=== PATIENT | male | born 1965 | race Caucasian/White ===

== ENCOUNTER → 2016-08-11 | Outpatient (CLI) | payer BC ==
[~2016-08-11] MED LIST: ASA325 MG PO; CELEBREX200 MG PO; DEPO-TESTO100 MG/1 M IM; HYDROCHLOROTHIA25 MG PO; OXY IR DPS5 MG PO; PROTONIX40 MG PO; SENOKOT S1 TAB PO; SYNTHROID200 MCG PO; TOPROL XL DPS50 MG PO; TYLENOL DPS325 MG PO; ULTRAM DPS50 MG PO; ZESTRIL DPS20 MG PO
== END | disposition home or self-care (01) ==
DX: Z01.818 Encounter for other preprocedural examination (principal); M16.11 Unilateral primary osteoarthritis, right hip; I10 Essential (primary) hypertension

== ENCOUNTER 2016-08-25 10:03 | Inpatient (IN) | payer BC ==
[~2016-08-25] VITALS: Ht 188 cm; Wt 139.9 kg
--- NOTE | 2016-08-27 13:48 | OR ---
ADMIT: 08/25/2016 RM/LOC: 530 [facility] MR#: [id number] [address] [id number] DONNIE JAMISON [address] [place] [address] Operative/Delivery Room Report SEX: M AGE: 50 : 1965 SURGERY DATE: 08/25/2016 SURGEON: Lupe Mena MD PREOPERATIVE DIAGNOSIS: Severe osteoarthritis, right hip. POSTOPERATIVE DIAGNOSIS: Severe osteoarthritis, right hip. PROCEDURE: Right total hip arthroplasty. HOUSEHOLD APPLIANCES SALESPERSON: Jesus Rodriguez PA-C ANESTHESIA: Spinal. ESTIMATED BLOOD LOSS: 350 mL. SPECIMEN: Bone. COMPLICATIONS: None. COMPONENTS: DePuy #8 standard offset porous [place] femoral stem, a 56 mm Slaughters cup with a neutral liner, and a 36 mm ceramic head with a 1.5 neck length. DESCRIPTION OF PROCEDURE: This patient was brought into the operating room. After satisfactory level of anesthesia was achieved, the patient was then positioned on the left lateral decubitus position. All bony prominences were well padded. Axillary roll was placed under his left axilla, and the extremity was then prepped and draped in the usual sterile fashion. The patient had large soft tissue component, and this required an extended incision both proximally and distally. Dissection was carried through a very deep subcutaneous layer, and the iliotibial band was incised just below the tip of the trochanter and carried up to the tip of the trochanter. The gluteus amie was split in line with its fibers posteriorly. A retractor was placed deep to the iliotibial band and gluteus amie fibers. The gluteus medius was then retracted to expose the piriformis tendon. This was incised at its insertion on the piriformis fossa. The capsule was then incised just above the piriformis, and then the external rotators and capsule were removed as a single layer, and this L-shaped flap of soft tissue was then reflected, and the hip dislocated. I then open the piriformis fossa with a step drill. A canal-finding reamer was then used and a lateralizing reamer next. I then reamed up for a #8 femoral stem. His canal distally was very tight at that as well. I made my provisional neck cut and reamed up for a #8 femoral stem, which fit the canal very well and was very tight. A calcar reamer was used to ream the calcar, and the broach was then removed. I then positioned retractors around the acetabulum. I started reaming with a 45 mm and bottomed this out to the acetabular fossa. Then, I enlarged this using my transverse acetabular ligament as my best guide keeping my reaming parallel to that. I reamed up to a 55, and this filled the acetabulum quite well. I ADMIT: 08/25/2016 RM/LOC: 530 [facility] MR#: [id number] [address] [place] [id number] DONNIE JAMISON [address] [address] Operative/Delivery Room Report SEX: M AGE: 50 : 1965 impacted a 56 mm Slaughters cup in an anatomic position again keeping the inferior lip of the component within the confines of the transverse acetabular ligament and parallel to the transverse acetabular ligament. A trial liner was then placed and secured in the component, and after repositioning the femur, I then placed the #8 femoral trial with a 1.5 neck length and a 36 mm standard neck. I reduced the hip, and I could flex the patient's hip to 90 degrees, completely adduct it, and then internally rotate him to about 75 or 80 degrees before he would start subluxing posteriorly. Likewise with maximum abduction, external rotation, and extension, he would not dislocate anteriorly. At this point, all trial components were then removed. Our local was used per protocol, and after thorough irrigation using pulsatile lavage, I then seated the neutral liner in the acetabulum, and the #8 femoral stem in the femur. A ceramic head with a 1.5 neck length was then impacted on the femoral component. The hip reduced. Once again, we had very good soft tissue tension, very good stability both anteriorly and posteriorly. At this point, I could then close the capsule in an anatomic fashion using interrupted #5 Ethibond and repaired the piriformis with #5 Ethibond as well. The iliotibial band and gluteus amie fascia were closed with #1 Vicryl and running #2 Quill suture, and because of its depth, the subcutaneous tissue was closed in multiple layers using 2-0 Vicryl. A running subcuticular was then performed, and the Ethicon Prineo was used to finally close the skin. A sterile dressing was applied, and the patient was then transferred from the operative suite in stable condition. Lupe Mena MD/ giovana JOB #: [id number] CC: Lupe Mena, Attending Physician Woo Herrera, Family Physician
[2016-08-28] MEDS ORDERED: ZESTRIL DPS20 MG PO (16:45)
[2016-08-28] MEDS ORDERED: HYDROCHLOROTHIA25 MG PO (16:45)
[2016-08-28] MEDS ORDERED: SYNTHROID200 MCG PO (16:46)
[2016-08-28] MEDS ORDERED: TOPROL XL DPS50 MG PO (16:46)
[2016-08-28] MEDS ORDERED: DEPO-TESTO100 MG/1 M IM (16:47)
[2016-08-28] MEDS ORDERED: ASA325 MG PO (16:47)
[2016-08-28] MEDS ORDERED: CELEBREX200 MG PO (16:48)
[2016-08-28] MEDS ORDERED: SENOKOT S1 TAB PO (16:48)
[2016-08-28] MEDS ORDERED: PROTONIX40 MG PO (16:48)
[2016-08-28] MEDS ORDERED: TYLENOL DPS325 MG PO (16:49)
[2016-08-28] MEDS ORDERED: OXY IR DPS5 MG PO (16:49)
[2016-08-28] MEDS ORDERED: ULTRAM DPS50 MG PO (16:49)
--- NOTE | 2016-09-02 07:44 | HP ---
ADMIT: 08/25/2016 RM/LOC: W.02 [facility] MR#: [id number] [facility] [address] [place] [address] Pre-OP History and Physical SEX: M AGE: 50 : 1965 DATE OF SERVICE: CHIEF COMPLAINT: Osteoarthritis right hip. HISTORY: This patient presents for right total hip arthroplasty. He has had all the usual conservative care and now presents with pain on a fairly constant basis. It interferes with activities of daily living, interferes with his sleep as well as his job at [employer]. He now presents for surgical treatment. PAST MEDICAL HISTORY: He has a history of hypertension, GERD, and sleep apnea. PAST SURGICAL HISTORY: Knee arthroscopy in 2003. MEDICATIONS: 1. Tirosint. 2. Metoprolol. 3. Hydrochlorothiazide. 4. Lisinopril. ALLERGIES: NO ALLERGIES TO MEDICINES. FAMILY HISTORY: Positive for cancer. SOCIAL HISTORY: The patient is a nonsmoker. He is . He and his live in [place]. He works at [employer]. REVIEW OF SYSTEMS: Negative. ADMIT: 08/25/2016 RM/LOC: W.02 [facility] MR#: [id number] [address] [address] [facility] [address] Pre-OP History and Physical SEX: M AGE: 50 : 1965 PHYSICAL EXAMINATION: This patient has full flexion of the hip. He has external rotation to 30 degrees. He has about 10-degree external rotational contracture of the hip. I can abduct his hip about 30 degrees. DIAGNOSTIC DATA: Radiographs show complete collapse of the joint space, subchondral sclerosis, and marginal osteophytes. IMPRESSION: Severe right hip arthritis. RECOMMENDATIONS: We will proceed with right total hip arthroplasty. The risks, benefits, alternatives as well as potential complications were discussed. Lupe Mena MD/ giovana JOB #: [id number] CC: Lupe Mena, Attending Physician UNKNOWN, Family Physician
--- NOTE | 2016-09-08 11:31 | DS ---
ADMIT: 08/25/2016 RM/LOC: [address] [facility] MR#: [id number] [address] [address] DONNIE JAMISON [address] [facility] [place] [address] General Discharge Summary SEX: M AGE: 50 : 1965 ADMISSION DATE: 08/25/2016 DISCHARGE DATE: 08/27/2016 REASON FOR ADMISSION: Elective right total hip arthroplasty after failing conservative treatment. ACTIVE MEDICAL PROBLEMS: Hypertension, gastroesophageal reflux disease, sleep apnea, and hypothyroidism. PREOPERATIVE DIAGNOSIS: Severe osteoarthritis of the right hip. POSTOPERATIVE DIAGNOSIS: Severe osteoarthritis of the right hip. PROCEDURE PERFORMED: Right total hip arthroplasty. SURGEON: Lupe Mena MD. ELECTRONICS TESTER: Jesus Rodriguez PA-C ANESTHESIA: Spinal. ESTIMATED BLOOD LOSS: 350 mL. COMPLICATIONS: None. HOSPITAL COURSE: The patient was admitted on 08/25/2016, for elective right total hip arthroplasty done successfully without any complications by Dr. Mena. The patient tolerated the procedure well. Postoperatively, he did well with pain control. He did as expected suffered from acute blood loss anemia. His hemoglobin dropped to 12.5 on 08/27/2016, but he remained hemodynamically stable and did not require blood transfusion. He participated well with physical therapy and did not have any pain to palpation on exam. By postoperative day #2, he was doing well with physical therapy, and he was safe, stable, and ready for discharge home with plans for outpatient physical therapy exercises per total hip arthroplasty protocol. DISCHARGE MEDICATIONS: 1. Hydrochlorothiazide 25 mg every morning. 2. Lisinopril 20 mg every morning. 3. Levothyroxine 200 mcg every morning. 4. Metoprolol succinate ER 50 mg every morning. 5. Testosterone cypionate 150 mg every other week. 6. Aspirin 325 mg at bedtime for 6 weeks. 7. Celebrex 200 mg twice daily for 7 days. ADMIT: 08/25/2016 RM/LOC: 530 [facility] MR#: [id number] [address] [facility] [address] [place] [phone] DONNIE JAMISON [address] [place] [place], [place] [id number] General Discharge Summary SEX: M AGE: 50 : 1965 8. MiraLax 17 g every day. 9. Protonix 40 mg at bedtime for 6 weeks. 10.Senokot 2 tablets at bedtime as needed. 11.Ultram 50 to 100 mg every 6 hours as needed. 12.Tylenol 650 mg every 6 hours as needed. 13.Oxycodone IR 5 to 10 mg every 4 hours as needed for breakthrough pain. DISCHARGE INSTRUCTIONS: The patient was discharged home with plans for outpatient physical therapy exercises per total hip arthroplasty protocol. Weightbearing as tolerated right lower extremity. Follow up in the orthopedic office in 2 weeks for wound check, in 6 weeks with x-ray. Follow up with primary care as directed. DAVIDA Esparza / Lupe Mena MD / giovana JOB #: [id number] CC: Lupe Mena MD, Attending Physician Woo Herrera MD, Family Physician
--- NOTE | 2016-10-06 10:20 | CO ---
ADMIT: 08/25/2016 RM/LOC: W.02 [facility] MR#: [id number] 2620 [facility] [address] [place] [phone] DONNIE JAMISON [address] [place] [place] [id number] Consultation SEX: M AGE: 50 : 1965 DATE OF CONSULTATION: 08/14/2016 ATTENDING PHYSICIAN: Lupe Mena CONSULTING PHYSICIAN: Woo Herrera MD REASON FOR CONSULTATION: Preoperative clearance. HISTORY OF PRESENT ILLNESS: This is a 50-year-old, white male with a longstanding history of right hip pain. It has progressed note in the last 3 months to the point where he is walking with a cane. It is limiting his ability to ambulate. He cannot exercise. His weight is going up. Therefore, he is scheduled for a right total hip arthroplasty. He has failed conservative therapy. Currently, he denies any recent chest pains. No shortness of breath. No fevers. No chills. No other difficulties. PAST MEDICAL HISTORY: Remarkable for: 1. Hypertension. 2. Gastroesophageal reflux disease. 3. Hypothyroidism. 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 5. Tonsillectomy. 6. Cholecystectomy. CURRENT MEDICATIONS: Include: 1. Hydrochlorothiazide 25 mg q.a.m. 2. Levothyroxine 200 mcg daily. 3. Lisinopril 50 mg daily. 4. Metoprolol ER 50 mg daily. 5. Testosterone 150 mg every other week IM. ALLERGIES: NONE. FAMILY HISTORY: Mother , had CHF. Father had esophageal cancer. Brother with heart problems. SOCIAL HISTORY: Does not smoke. Occasional alcohol use. Works at [employer]. He is . REVIEW OF SYSTEMS: GENERAL: No fevers or chills. HEENT: No headaches, blurred vision, or double vision. CARDIAC: No chest pains and no shortness of breath. GI: No nausea, vomiting, diarrhea, or constipation. : No dysuria, urgency, or frequency. ENDOCRINE: No polyuria or polydipsia. PSYCH: No depression. INTEGUMENTARY: No new rashes. All others are negative. ADMIT: 08/25/2016 RM/LOC: W.02 [facility] MR#: [id number] [address] [place] [address] [place], [place] [address] [facility] [address] [address] Consultation SEX: M AGE: 50 : 1965 PHYSICAL EXAMINATION: VITAL SIGNS: Blood pressure is 132/88, pulse 83, respirations 18, temperature is 99.6. GENERAL: He is in no acute distress. He is alert and oriented. HEENT: Pupils are reactive. Conjunctivae are clear. Clear nasal mucosa. Clear oropharynx. Moist mucous membranes. NECK: Soft and supple without lymphadenopathy. No thyromegaly. LUNGS: Clear to auscultation with good respiratory effort. HEART: Regular rate and rhythm without murmur. ABDOMEN: Obese, soft, and nontender. EXTREMITIES: No cyanosis. No clubbing. No edema. LAB/X-RAY DATA: EKG shows nothing acute. White count 9800, hemoglobin 16.0, platelets 200,000. Sodium 138, potassium 3.8, chloride 100, CO2 of 33, BUN 17, creatinine 1.0, glucose 91, calcium 8.8. ASSESSMENT: 1. Right hip degenerative joint disease. 2. Hypertension. 3. Obesity. 4. Hypothyroidism. PLAN: He has no signs or symptoms of acute illness. Preoperative lab is fine. We will use enteric-coated aspirin 325 mg daily for DVT prophylaxis. We will follow along in the perioperative period and plan on proceeding with the procedure as scheduled. Woo Herrera MD/ giovana JOB #: [id number] CC: Lupe Mena, Attending Physician UNKNOWN, Family Physician
== END 2016-08-27 15:36 | disposition home or self-care (01) | DRG 470 ==
LOC: WOR 10:03 → 5MS 10:03
PROVIDERS: ADMIT Orthopaedic Surgery
PROC: 0SR904A Replacement of Right Hip Joint with Ceramic on Polyethylene Synthetic Substitute, Uncemented, Open Approach (ICD-10-PCS; principal; 2016-08-25)
DX: M16.11 Unilateral primary osteoarthritis, right hip (principal); E66.9 Obesity, unspecified; I10 Essential (primary) hypertension; D62 Acute posthemorrhagic anemia; K21.9 Gastro-esophageal reflux disease without esophagitis; G47.30 Sleep apnea, unspecified; E03.9 Hypothyroidism, unspecified; Z68.37 Body mass index [BMI] 37.0-37.9, adult